=== PATIENT | male | born 1990 | race Caucasian/White ===

== ENCOUNTER 2016-12-19 16:06 | Emergency (ER) | payer MEDICAID ==
[2016-12-19 16:20] VITALS: BP 151/89
--- NOTE | 2016-12-19 16:25 | ED Physician Documentation ---
PD HPI HEAD INJURY - Stated complaint Stated Complaint: HEAD INJURY - Chief complaint Chief Complaint: General - History obtained from History obtained from: Patient - History of Present Illness Mechanism of head injury: Fell Where head injury occurred: Home Timing - onset: Last night Pain level max: 6 Pain level now: 5 Location of injury: Other (Occiput) Quality of pain: Pain, Throbbing, Aching Associated symptoms: LOC (Unsure how long he was unconscious for), Nausea / vomiting (Once today). No: Neck pain, Paresthesias, Seizures, Ear drainage, Nasal drainage Symptoms improve with: Rest Symptoms worsen with: Palpation, Movement Contributing factors: Intoxicated (States drank 2 beers last night). No: Anticoagulated Similar symptoms before: Has not had sx before Recently seen: Not recently seen Review of Systems Constitutional: denies: Fever, Chills Eyes: denies: Loss of vision, Decreased vision, Photophobia Ears: denies: Ear pain, Drainage/discharge Nose: denies: Rhinorrhea / runny nose, Congestion Throat: denies: Sore throat Cardiac: denies: Chest pain / pressure Respiratory: denies: Cough GI: denies: Abdominal Pain, Nausea, Vomiting : denies: Dysuria Skin: denies: Rash Musculoskeletal: denies: Neck pain, Back pain Neurologic: denies: Focal weakness, Numbness, Confused, Altered mental status PD PAST MEDICAL HISTORY - Past Medical History Past Medical History: No - Past Surgical History Past Surgical History: No - Present Medications Home Medications: Ambulatory Orders Medication Instructions Recorded Confirmed No Known Home Medications [No 12/19/16 12/19/16 Known Home Medications] - Allergies Allergies/Adverse Reactions: Allergies Allergy/AdvReac Type Severity Reaction Status Date / Time No Known Drug Allergies Allergy Verified 12/19/16 16:20 - Living Situation Living Arrangement: reports: At home - Social History Does the pt smoke?: Yes Does the pt drink ETOH?: Yes - Family History Family history: reports: Non contributory - Immunizations Immunizations are current?: Yes Immunizations: TDAP current <10years PD ED PE NORMAL - Vitals Vital signs reviewed: Yes - General General: Alert and oriented X 3, No acute distress, Well developed/nourished - HEENT HEENT: PERRL, EOMI, Ears normal (No hemotympanum), Moist mucous membranes, Pharynx benign, Other (Slight hematoma and abrasion to the occiput. 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 No acute findings on head CT. No bleeding, no fracture. Normal neurological exam. Abrasion to the occiput was cleansed and bandaged. Tetanus is up-to-date. We will continue supportive care and have him follow-up with his doctor. Patient counseled regarding signs and symptoms for which I believe and urgent re-evaluation would be necessary. Patient with good understanding of and agreement to plan and is comfortable going home at this time This document was made in part using voice recognition software. While efforts are made to proofread this document, sound alike and grammatical errors may occur. Departure - Departure Disposition: 01 Home, Self Care Clinical Impression: Head injury Qualifiers: Encounter type: initial encounter Qualified Code(s): S09.90XA - Unspecified injury of head, initial encounter Concussion Qualifiers: Encounter type: initial encounter Loss of consciousness presence/duration: with LOC of unspecified duration Qualified Code(s): S06.0X9A - Concussion with loss of consciousness of unspecified duration, initial encounter Condition: Good Instructions: ED Head Injury Closed Follow-Up: your,doctor in 1 week for recheck [Other] Comments: The symptoms of a concussion can take several days to weeks to improve. It is important that you follow-up with your doctor for further evaluation and care. Keep the abrasion clean. Return if you worsen. Your head CT is normal today. Forms: Activity restrictions
--- NOTE | 2016-12-19 16:53 | CT Preliminary Report ---
Exam: CT Head W/O IMPRESSION: Normal head CT. [facility] SITE ID: [id number]
--- NOTE | 2016-12-19 16:56 | CT Report ---
EXAM: CT HEAD EXAM DATE: 12/19/2016 04:35 PM. CLINICAL HISTORY: Fall, occipital injury, +LOC, +vomiting. COMPARISON: None. TECHNIQUE: Multiaxial CT images were obtained from the foramen magnum to the vertex. IV contrast: Non e. Reformats: Coronal. In accordance with CT protocol optimization, one or more of the following dose reduction techniques w ere utilized for this exam: automated exposure control, adjustment of mA and/or KV based on patient s ize, or use of iterative reconstructive technique. FINDINGS: Parenchyma: No intracranial hemorrhage. No evidence of mass, midline shift or CT findings of infarcti on. Aquino-white differentiation is distinct. Extraaxial Spaces: Normal for age. No subdural or epidural collections identified. Ventricles: Normal in size and position. Sinuses: Imaged paranasal sinuses, orbits, and mastoids show no significant abnormality. Bones: No evidence of fracture or calvarial defect. Other: None. IMPRESSION: Normal head CT. [facility] Referring Provider Line: [phone] SITE ID: [id number]
[2016-12-19] MEDS ORDERED: IBUPROFEN 800 MG TABLET PO STA (16:59)
[2016-12-19] MEDS ORDERED: IBUPROFEN 800 MG TABLET PO ONE (16:59)
== END 2016-12-19 17:07 | disposition home or self-care (01) ==
LOC: ED 16:06
DX: S06.0X9A Concussion with loss of consciousness of unspecified duration, initial encounter (principal); S00.01XA Abrasion of scalp, initial encounter; S00.03XA Contusion of scalp, initial encounter; W01.10XA Fall on same level from slipping, tripping and stumbling with subsequent striking against unspecified object, initial encounter; Y92.009 Unspecified place in unspecified non-institutional (private) residence as the place of occurrence of the external cause; F17.200 Nicotine dependence, unspecified, uncomplicated
CPT/HCPCS: 70450; 99283; 99284; A9270